=== PATIENT | female | born 1985 | race Two or more races ===

== ENCOUNTER 2017-03-28 06:14 | Inpatient (IN) | payer MEDICAID ==
[2017-03-28] MEDS ORDERED: PRENATAL ONE T1 EAC1 PO (06:58)
[2017-03-28] MEDS ORDERED: PERFECT IRON25 MG PO (07:00)
[2017-03-28] MEDS ORDERED: FISH OIL300 M1 PO (07:01)
[2017-03-29 05:54] LABS: BASO % 0.1 % (0-2); EOS % 0.4 % (0-7); HCT-HEMATOCRIT 30.3 % (34.0-49.0); HGB-HEMOGLOBIN 10.1 gm/dl (12.0-15.5); IMMATURE GRANULOCYTES ABSOLUTE 0.03 tho/cmm (0-0.03); IMMATURE GRANULOCYTES PERCENT 0.3 % (0-0.3); LYMPH % 13.7 % (20-45); LYMPH ABSOLUTE COUNT 1.4 tho/cmm (0.8-4.5); MCH (MEAN CORPUSCULAR HGB) 30.2 pg (28.0-32.0); MCHC MEAN CORPUSCULAR HGB CONC 33.3 % (32.0-36.0); MCV (MEAN CELL VOLUME) 90.7 fl (82.0-96.0); MEAN PLATELET VOLUME 12.8 cmc (9.4-12.4); MONO % 5.5 % (0-12); MONOCYTE ABSOLUTE COUNT 0.6 tho/cmm (0.0-1.2); NEUTROPHIL ABSOLUTE COUNT 7.9 tho/cmm (1.6-8.0); NEUTROPHIL-AUTOMATED 7.9 tho/cmm (1.6-8.0); PLATELET COUNT 104 tho/cmm (150-450); RED BLOOD COUNT 3.34 mil/cmm (4.00-5.20); WHITE BLOOD COUNT 9.9 tho/cmm (4.0-10.0)
[2017-03-30] MEDS ORDERED: IBUPROFEN800 M1 PO (11:05)
== END 2017-03-30 13:35 | DRG 775 ==
LOC: LDR 06:14 → OBGF 14:52
PROVIDERS: Advanced Practice Midwife; ADMIT Advanced Practice Midwife
PROC: 10E0XZZ Delivery of Products of Conception, External Approach (ICD-10-PCS; principal; 2017-03-28)
PROC: 0KQM0ZZ Repair Perineum Muscle, Open Approach (ICD-10-PCS; 2017-03-28)
DX: O69.81X0 Labor and delivery complicated by cord around neck, without compression, not applicable or unspecified (principal); O69.1XX0 Labor and delivery complicated by cord around neck, with compression, not applicable or unspecified; O70.1 Second degree perineal laceration during delivery; Z3A.40 40 weeks gestation of pregnancy; Z37.0 Single live birth
CPT/HCPCS: J2590